=== PATIENT | male | born 2005 | race American Indian/Alaskan Native ===

== ENCOUNTER 2024-09-18 18:47 | Emergency (ER) | payer SELFPAY ==
[~2024-09-18] VITALS: Ht 177.8 cm; Wt 84.4 kg
[2024-09-18 18:52] VITALS: PULSE 65; RESP 18; TEMP 99
[2024-09-18] MEDS ORDERED: TAMIFLU75 MG PO (20:01)
[2024-09-18] MEDS ORDERED: IBUPROFEN800 MG PO (20:01)
[2024-09-18] MEDS ORDERED: VENTOLIN HFA18 GM INH (20:02)
[2024-09-18 20:10] VITALS: BP 129/81; PULSE 75; RESP 18; TEMP 98.3; O2SAT 100
== END 2024-09-18 20:12 | disposition home or self-care (01) ==
LOC: FSED 19:09
DX: R50.9 Fever, unspecified (principal); J10.1 Influenza due to other identified influenza virus with other respiratory manifestations; R09.89 Other specified symptoms and signs involving the circulatory and respiratory systems; R05.9 Cough, unspecified; Z11.52 Encounter for screening for COVID-19
CPT/HCPCS: 0223U; 83518 ×2; 87400; 99283

== ENCOUNTER 2025-01-10 22:01 | Emergency (ER) | payer BC ==
[~2025-01-10] VITALS: Ht 175.3 cm; Wt 81.2 kg
[~2025-01-10 22:01] MED LIST: IBUPROFEN800 MG PO; TAMIFLU75 MG PO; VENTOLIN HFA18 GM INH
[2025-01-10 22:10] VITALS: PULSE 75; RESP 18; TEMP 99.6
[2025-01-10] MEDS ORDERED: MAALOX MAXIMUM355 ML PO (22:50)
[2025-01-10] MEDS ORDERED: ONDANSETRON ODT4 MG PO (22:50)
[2025-01-10] MEDS ORDERED: FAMOTIDINE20 MG PO (22:50)
[2025-01-10] MEDS: ONDANSETRON HCL INJ 2MG/ML 2ML 2 MG/ML VIAL IV ONE (23:12)
[2025-01-10] MEDS: FAMOTIDINE 20 MG/2 ML VIAL IV ONE (23:12)
[2025-01-10] MEDS: SODIUM CHLORIDE 0.9% 1000ML 1,000 ML IV STA (23:12)
[2025-01-11 00:39] VITALS: BP 129/60; PULSE 90; RESP 28; TEMP 98.3; O2SAT 100
== END 2025-01-10 23:51 | disposition home or self-care (01) ==
LOC: FSED 22:04
DX: R11.2 Nausea with vomiting, unspecified (principal); R19.7 Diarrhea, unspecified; A05.9 Bacterial foodborne intoxication, unspecified
CPT/HCPCS: 80048; 80076; 80307; 85025; 96374; 96375; 99283; J2405; J7030; 81003